=== PATIENT | male | born 1975 | race Caucasian/White ===

== ENCOUNTER 2021-02-06 02:48 | Emergency (ER) | payer SELFPAY ==
[2021-02-06] VITALS (11 sets, daily range): BP systolic 126–155; BP diastolic 62–82; PULSE 62–89; RESP 15–18; TEMP 36.4; O2SAT 96–100; BMI 25.1
--- NOTE | 2021-02-06 04:39 | ED.ALCOHOL ---
HPI - Alcohol General Chief Complaint: Toxicology Problem Stated Complaint: Withdrawal Time Seen by Provider: 02/06/21 03:57 Source: patient Mode of arrival: EMS History of Present Illness HPI narrative: Patient is a 45-year-old male who presents with thinking he is in detox from [facility]. He states that he takes 3 pills of fentanyl daily he has stopped taking them about 1 day ago. He developed shakes and chills and felt quite poorly he took a small bite of a fentanyl fill thinking it might help but it did not. He panicked and called the 8 car. He also admits to drinking alcohol at least a 5th of Tequila daily. He previously has gone through detox from [facility]. He was at [facility] center he states over for about 3 years and relapsed about 2-3 months ago. He started drinking more alcohol in order to decrease the fentanyl use but he says he just started using more of both. At this time he feels like he would really like to stop. He just got nervous. He denies any nausea or vomiting now he is currently eating a sandwich. MD complaint: desires rehab and medical clearance for detox facility Related Data Previous Rx's Medication Instructions Recorded finasteride 1 mg tablet 1 mg PO QDAY #90 tab 03/09/20 lorazepam [Ativan] 1 mg PO TID PRN #12 tab 02/06/21 Allergies Allergy/AdvReac Type Severity Reaction Status Date / Time No Known Drug Allergies Allergy Verified 10/06/18 15:18 Review of Systems Review of Systems Narrative: GENERAL: Denies chills, fatigue, malaise, fever, sweats, travel HEENT: Denies sinus pain, ear pain, sore throat, difficulty swallowing, neck pain RESPIRATORY: Denies dyspnea, cough, wheezing, hemoptysis, sputum. CARDIOVASCULAR: Denies chest pain, palpitations, orthopnea, edema GASTROINTESTINAL: Denies nausea, vomiting, abdominal pain, diarrhea, constipation, melena. : Denies dysuria, frequency, incontinence, hematuria, urinary retention, flank pain. MUSCULOSKELETAL: Denies weakness, joint pain, or bony pain SKIN: No rash, no erythema, no pruritus NEUROLOGIC: Denies weakness, dizziness, headache, numbness, change in speech, confusion PSYCHIATRIC: Polysubstance abuse 12 point review of systems is negative except for those stated above and HPI Patient History Medical History (Updated 02/06/21 @ 07:30 by Mandy Ibarra DO) Back problem Polysubstance abuse Social History Smoking Status: Never smoker Smoking Status: Never smoker alcohol intake frequency: 3 or more drinks per day Alcohol type: hard liquor Substance Use Type: opiates Exam Initial Vital Signs Initial Vital Signs: Vital Signs Temperature 97.6 F 02/06/21 02:58 Pulse Rate 89 02/06/21 02:58 Respiratory Rate 18 02/06/21 02:58 Blood Pressure 150/82 H 02/06/21 02:58 Pulse Oximetry 100 02/06/21 02:58 GENERAL: Well-appearing, well-nourished and in no acute distress. HEENT: Head atraumatic,EOMI, pupils reactive, face symmetric, moist mucous membranes CARDIOVASCULAR: Regular rate and rhythm without murmurs, rubs or gallops. RESPIRATORY: Breath sounds equal bilaterally, no wheezes rales or rhonchi. ABDOMEN: Soft, nontender. Normoactive bowel sounds all 4 quadrants. No guarding or rebound. EXTREMITIES: Normal range of motion, no clubbing or edema. Neurovascularly intact NEUROLOGICAL: Alert and oriented x4. SKIN: Warm, dry, no laceration, no petechiae, no rashes or lesions. Course Orders Ordered: ED Orders 02/06/21 05:15 COVID19 -Nasal swab/Pre-Proc Stat 02/06/21 05:39 Complete Blood Count AUTO DIFF Stat Comprehensive Metabolic Panel Stat Ethanol (ETOH) Stat 02/06/21 06:15 Urine Drug Screen, Rapid Stat Urine Microscopic Stat Discontinued Medications Hydroxyzine Pamoate (Hydroxyzine Pamoate 25 Mg Capsule) 50 mg PO NOW ONE Stop: 02/06/21 06:49 Last Admin: 02/06/21 06:53 Dose: 50 mg Documented by: SUNNI Lorazepam (Lorazepam 0.5 Mg Tablet) 1 mg PO NOW ONE Stop: 02/06/21 07:46 Last Admin: 02/06/21 07:57 Dose: 1 mg Documented by: SHARLENE Vital Signs Vital signs: Vital Signs - 8 hr 02/06/21 02:58 02/06/21 03:30 02/06/21 04:00 Temperature 97.6 F Pulse Rate 89 73 66 Respiratory Rate 18 16 16 Blood Pressure 150/82 H 147/75 H 143/74 H Pulse Oximetry 100 99 99 02/06/21 04:30 02/06/21 05:00 02/06/21 05:30 Temperature Pulse Rate 71 69 62 Respiratory Rate 15 15 Blood Pressure 140/78 154/82 H 155/79 H Pulse Oximetry 99 98 02/06/21 06:00 02/06/21 06:30 02/06/21 07:00 Temperature Pulse Rate 67 72 68 Respiratory Rate 17 Blood Pressure 139/72 149/82 H 127/68 Pulse Oximetry 97 98 96 02/06/21 07:30 02/06/21 08:00 Temperature Pulse Rate 71 69 Respiratory Rate 18 15 Blood Pressure 126/62 142/70 H Pulse Oximetry 97 100 MDM - Alcohol Lab Data Result diagrams: 02/06/21 05:39 02/06/21 05:39 Labs: Lab Results 02/06/21 02/06/21 02/06/21 Range/Units 05:15 05:39 05:39 WBC 5.8 (4.5-11.0) X10^3/uL RBC 4.65 (4.5-5.9) X10^6/uL Hgb 14.1 (13.5-17.5) g/dL Hct 41.8 (41-53) % MCV 90.0 (80-100) fL MCH 30.3 (26-34) PG MCHC 33.7 (30-36) % RDW 13.9 (11.6-14.8) % Plt Count 219 (150-400) X10^3/uL Neut % (Auto) 82.6 H (50-75) % Lymph % (Auto) 10.0 L (25-40) % [place] % (Auto) 7.0 (3-14) % Eos % (Auto) 0.1 L (2-4) % Baso % (Auto) 0.3 (0-2) % Neut # (Auto) 4800 (6203-8168) /uL Lymph # (Auto) 600 L (5649-9923) /uL [place] # (Auto) 400 (0-900) /uL Eos # (Auto) 0 (0-450) /uL Baso # (Auto) 0 (0-100) /uL Sodium 132 L (137-145) mmol/L Potassium 4.6 (3.4-5.1) mmol/L Chloride 94 L (98-107) mmol/L Carbon Dioxide 20 L (22-32) mmol/L BUN 14 (9-20) mg/dL Creatinine 0.82 (0.66-1.25) mg/dL Estimated GFR > 60.0 (>60) mL/min BUN/Creatinine Ratio 17.1 (6-22) Glucose 96 (70-100) mg/dL Calcium 9.4 (8.4-10.2) mg/dL Total Bilirubin 0.5 (0.2-1.3) mg/dL AST 52 (17-59) IU/L ALT 43 (<50) IU/L Alkaline Phosphatase 113 (38-126) U/L Total Protein 8.0 (6.3-8.2) g/dL Albumin 4.9 (3.5-5.0) g/dL Globulin 3.1 (1.7-4.1) g/dL Albumin/Globulin Ratio 1.6 (1.0-2.8) Urine RBC (0-5/HPF) Urine WBC (0-5/HPF) Calcium Oxalate Crystal Urine Bacteria (None) Ur Culture Indicated? U Opiates 300ng/mL cut (Negative) Ur Oxycodone Screen (Negative) Urine Methadone Screen (Negative) Ur Barbiturates Screen (Negative) U Tricyclic Antidepress (Negative) Ur Phencyclidine Scrn (Negative) Ur Amphetamines Screen (Negative) U Methamphetamines Scrn (Negative) Ur MDMA Scrn (Ecstasy) (Negative) U Benzodiazepines Scrn (Negative) Urine Cocaine Screen (Negative) U Marijuana (THC) Screen (Negative) Ethyl Alcohol 11 H ( - 10) mg/dL SARS-CoV-2 (PCR) Negative (Negative) 02/06/21 02/06/21 Range/Units 06:15 06:15 WBC (4.5-11.0) X10^3/uL RBC (4.5-5.9) X10^6/uL Hgb (13.5-17.5) g/dL Hct (41-53) % MCV (80-100) fL MCH (26-34) PG MCHC (30-36) % RDW (11.6-14.8) % Plt Count (150-400) X10^3/uL Neut % (Auto) (50-75) % Lymph % (Auto) (25-40) % [place] % (Auto) (3-14) % Eos % (Auto) (2-4) % Baso % (Auto) (0-2) % Neut # (Auto) (0156-2350) /uL Lymph # (Auto) (4352-2011) /uL [place] # (Auto) (0-900) /uL Eos # (Auto) (0-450) /uL Baso # (Auto) (0-100) /uL Sodium (137-145) mmol/L Potassium (3.4-5.1) mmol/L Chloride (98-107) mmol/L Carbon Dioxide (22-32) mmol/L BUN (9-20) mg/dL Creatinine (0.66-1.25) mg/dL Estimated GFR (>60) mL/min BUN/Creatinine Ratio (6-22) Glucose (70-100) mg/dL Calcium (8.4-10.2) mg/dL Total Bilirubin (0.2-1.3) mg/dL AST (17-59) IU/L ALT (<50) IU/L Alkaline Phosphatase (38-126) U/L Total Protein (6.3-8.2) g/dL Albumin (3.5-5.0) g/dL Globulin (1.7-4.1) g/dL Albumin/Globulin Ratio (1.0-2.8) Urine RBC None seen (0-5/HPF) Urine WBC None seen (0-5/HPF) Calcium Oxalate Crystal Few H Urine Bacteria None seen (None) Ur Culture Indicated? Cult not indicated U Opiates 300ng/mL cut Negative (Negative) Ur Oxycodone Screen Positive H (Negative) Urine Methadone Screen Negative (Negative) Ur Barbiturates Screen Negative (Negative) U Tricyclic Antidepress Negative (Negative) Ur Phencyclidine Scrn Negative (Negative) Ur Amphetamines Screen Negative (Negative) U Methamphetamines Scrn Negative (Negative) Ur MDMA Scrn (Ecstasy) Negative (Negative) U Benzodiazepines Scrn Negative (Negative) Urine Cocaine Screen Negative (Negative) U Marijuana (THC) Screen Negative (Negative) Ethyl Alcohol ( - 10) mg/dL SARS-CoV-2 (PCR) (Negative) Urine Dip Bedside Urine Glucose Negative Bedside Urine Bilirubin - Negative Bedside Urine Ketone +++ 80 Urine Specific [place] 1.030 Bedside Urine Protein +/- 15 Bedside Urine Urobilinogen - Negative Bedside Urine Nitrite - Negative Bedside Urine Leukocytes - Negative Esterase MDM Narrative Medical decision making narrative: The patient overall appears well eating a sandwich and cheese. Blood work and urine are clear patient is getting a little anxious he is given hydroxyzine. And a dose of Ativan. Patient is accepted at detox Discharge Plan Departure Patient Disposition: Home Clinical Impression: Polysubstance abuse Instructions: DI for Alcohol Use Disorder Activity Restrictions/Additional Instructions: *You have been diagnosed with alcohol abuse, fentanyl abuse *What to do: Go directly to [facility] *Continue to take medications as directed Ativan 1 mg every 8 hours for 2 days, then 1 mg every 12 hours for 2 days, then 1 mg for 2 days *Follow up with your primary care provider in 2-3 days *Return to ER if you should have any new, worsening or concerning symptoms Prescriptions: New lorazepam [Ativan] 1 mg tablet 1 mg PO TID PRN (Reason: alcohol withdrawal) Qty: 12 RF: 0 No Action finasteride 1 mg tablet 1 mg PO QDAY Qty: 90 RF: 1 Referrals: Artur Bahena MD [Primary Care Provider] -
[2021-02-06 05:50] LABS: COVID19 -Nasal RAPID Negative (Negative)
[2021-02-06 05:53] LABS: Add Manual Diff / Slide Review NO; Basophils Absolute Auto 0 /uL (0-100); Basophils Percent Auto 0.3 % (0-2); Eosinophils Absolute Auto 0 /uL (0-450); Eosinophils Percent Auto 0.1 % (2-4); Hematocrit 41.8 % (41-53); Hemoglobin 14.1 g/dL (13.5-17.5); Lymphocytes Absolute Auto 600 /uL (1100-4500); Mean Corpuscular HGB Conc 33.7 % (30-36); Mean Corpuscular Hemoglobin 30.3 PG (26-34); Monocytes Absolute Auto 400 /uL (0-900); Neutrophils Absolute Auto 4800 /uL (1500-7000); Neutrophils Percent Auto 82.6 % (50-75); Platelet Count 219 X10^3/uL (150-400); Red Blood Cell Count 4.65 X10^6/uL (4.5-5.9); Red Cell Distribution Width 13.9 % (11.6-14.8); White Blood Cell Count 5.8 X10^3/uL (4.5-11.0)
[2021-02-06 06:07] LABS: Alanine Aminotransferase 43 IU/L (<50); Albumin 4.9 g/dL (3.5-5.0); Albumin Globulin Ratio 1.6 (1.0-2.8); Alkaline Phosphatase 113 U/L (38-126); Aspartate Aminotransferase 52 IU/L (17-59); BUN Creatinine Ratio 17.1 (6-22); Bilirubin Total 0.5 mg/dL (0.2-1.3); Blood Urea Nitrogen 14 mg/dL (9-20); Calcium 9.4 mg/dL (8.4-10.2); Carbon Dioxide 20 mmol/L (22-32); Chloride 94 mmol/L (98-107); Estimated Glomerular Filt Rate > 60.0 mL/min (>60); Ethanol (ETOH) 11 mg/dL; Globulin 3.1 g/dL (1.7-4.1); Glucose 96 mg/dL (70-100); HEMOLYSIS 16 (0-50); Potassium 4.6 mmol/L (3.4-5.1); Sodium 132 mmol/L (137-145)
[2021-02-06 06:29] LABS: RBC Urine None Seen (0-5/HPF); WBC Urine None Seen (0-5/HPF)
[2021-02-06 06:30] LABS: Bacteria Urine None Seen
[2021-02-06 06:36] LABS: UR Morphine/Opiate cutoff 300 Negative (Negative); Ur Creatinine Normal (Normal); Ur Specific Gravity Normal (Normal); Urine Amphetamines Negative (Negative); Urine Barbiturates Negative (Negative); Urine Benzodiazepines Negative (Negative); Urine Cocaine Negative (Negative); Urine MDMA Negative (Negative); Urine Methadone Negative (Negative); Urine Methamphetamines Negative (Negative); Urine Oxycodone Positive (Negative); Urine Phencyclidine Negative (Negative); Urine Tetrahydrocannabinol Negative (Negative); Urine Tricyclic Antidepressant Negative (Negative); Urine pH Normal (Normal)
[2021-02-06 06:38] LABS: Calcium Oxalate Crystals Urine Few; Culture Indicated Urine Cult Not Indicated
[2021-02-06] MEDS: hydrOXYzine pamoate 25 MG CAPSULE 50 MG PO (06:53)
[2021-02-06] MEDS: LORazepam 0.5 MG TABLET 1 MG PO (07:57)
== END 2021-02-06 08:37 | disposition home or self-care (01) ==
PROVIDERS: Emergency Provider Emergency Medicine; PCP Student in an Organized Health Care Education/Training Program
DX: F19.10 Other psychoactive substance abuse, uncomplicated (principal); Z20.822 Contact with and (suspected) exposure to COVID-19
CPT/HCPCS: 36415; 80053; 80305; 80320; 81003; 81015; 85025; 87635; 99283; C9803